=== PATIENT | female | born 1955 | race Caucasian/White ===

== ENCOUNTER 2018-11-11 00:43 | Inpatient (IN) | payer OTHER ==
[~2018-11-11] VITALS: Ht 167.6 cm; Wt 65.0 kg
--- NOTE | 2018-11-11 01:26 | NUR ---
BIBF. C/O "SLIPPED AND FELL ONTO FLOOR. HIT HEAD.R HIP PAIN" -SOB AOX4. VSS.
[2018-11-11] MEDS ORDERED: ONDANSETRON 4 MG TAB.RAPDIS ONE (02:28)
[2018-11-11] MEDS ORDERED: oxyCODONE/APAP (5/325 MG) 1 UDTAB TABLET ONE (02:28)
[2018-11-11] MEDS ORDERED: oxyCODONE/APAP (5/325 MG) 1 UDTAB TABLET PO ONE (02:30)
[2018-11-11] MEDS ORDERED: ONDANSETRON 4 MG TAB.RAPDIS SL ONE (02:30)
[2018-11-11] MEDS ORDERED: SIMV10TA6 PO (04:17)
[2018-11-11] MEDS ORDERED: VENL37.55 PO (04:18)
[2018-11-11 04:24] VITALS: BP 153/73
--- NOTE | 2018-11-11 04:24 | NUR ---
MS RN OPENING NOTES: RECEIVED PT ON ROOM AIR AND IS TOLERATING WELL. NO SOB NOTED. PT COMPLAINING OF MILD R HIP PAIN WHEN SHE MOVES AROUND. PT WAS ALREADY MEDICATED FOR PAIN IN ER. PT HAS IV ON L AC #20G AND IS PATENT AND INTACT. CURRENTLY H/L. BED KEPT IN LOW, LOCKED POSITION, AND SIDE RAILS X 2UP. WILL CONTINUE TO MONITOR PT.
[2018-11-11] MEDS ORDERED: ONDANSETRON HCL/PF 4 MG/2 ML VIAL IVP PRN (04:30)
[2018-11-11] MEDS ORDERED: ACETAMINOPHEN 325 MG TABLET PO PRN (04:30)
[2018-11-11] MEDS ORDERED: Z GUARD REMEDY 2 OZ OINT TP PRN (04:30)
[2018-11-11] MEDS ORDERED: MAG HYDROX/AL HYDROX/SIMETH 30 ML UDC PO PRN (04:30)
[2018-11-11] MEDS ORDERED: ZOLPIDEM TARTRATE 5 MG TABLET PO PRN (04:30)
[2018-11-11] MEDS ORDERED: MAGNESIUM HYDROXIDE 30 ML UDC PO PRN (04:30)
[2018-11-11] MEDS ORDERED: MORPHINE SULFATE INJ 2 MG/ML DISP.SYRIN IV PRN (04:30)
--- NOTE | 2018-11-11 05:00 | NUR ---
MS RN NOTES: MRI CHECKLIST COMPLETED AND PLACED IN CHART.
[2018-11-11] MEDS ORDERED: VENL75TA4 PO (05:35)
[2018-11-11] MEDS ORDERED: SIMV40TA5 PO (05:35)
--- NOTE | 2018-11-11 05:37 | NUR ---
MS RN NOTES: SPOKE WITH PT AND SHE CONFIRMED THAT SHE TAKES SIMVASTATIN 40MG QHS AND EFFEXOR 75MG EVERY OTHER DAY.
--- NOTE | 2018-11-11 06:25 | NUR ---
MS RN CLOSING NOTES: ALL NEEDS WERE ATTENDED AND ANTICIPATED FOR. PT ASLEEP AT THIS TIME AND RESTING COMFORTABLY. NO SOB NOTED. NO S/S OF DISTRESS. PT HAS IV ON L AC #20G AND IS PATENT AND INTACT. CURRENTLY H/L. BED KEPT IN LOW, LOCKED POSITION, AND SIDE RAILS X 2UP. WILL ENDORSE TO AM NURSE FOR ELIESER.
[2018-11-11 08:00] VITALS: BP 152/79
--- NOTE | 2018-11-11 08:05 | NUR ---
MS RN RECEIVED ON BED, AWAKE,ALERT,ORIENTED X4,NOT IN ANY FORM OF DISTRESS, RESPIRATIONS EVEN AND UNLABORED,NO SOB NOTED, S/P GROUND LEVEL FALL, RIGHT HIP PAIN, WILL MONITOR PATIENT.
--- NOTE | 2018-11-11 09:00 | NUR ---
RN BREAKFAST SERVED, ALL NEEDS ATTENDED.
--- NOTE | 2018-11-11 10:00 | NUR ---
MS SANCHEZ WAS SEEN BY RUBENS Browne/ ORDERS MADE AND CARRIED OUT.
[2018-11-11] MEDS: HYDROCODONE/APAP 5/325MG 1 EACH TABLET PO PRN (11:48)
--- NOTE | 2018-11-11 14:00 | NUR ---
MS RN RECEIVED MRI RESULT, PT AWARE, WANT TO TALKED W/ TOREY, TOREY WAS AWARE,WILL TALK TO HER LATER AFTER DOING ADMISSIONS.
[2018-11-11 16:02] LABS: BASOPHILS % (AUTO) 0.7 % (0.0-2.0); HEMATOCRIT 42 % (33-45); HEMOGLOBIN 14.5 g/dL (11.5-14.8); LYMPHOCYTES # (AUTO) 1.5 /CMM (0.8-4.8); LYMPHOCYTES % (AUTO) 20.2 % (20.0-44.0); MEAN CORPUSCULAR HGB CONC 34 g/dl (31.0-36.0); MEAN CORPUSCULAR VOLUME 88 fL (82-100); MONOCYTES # (AUTO) 0.5 /CMM (0.1-1.30); MONOCYTES % (AUTO) 6.5 % (2.0-12.0); NEUTROPHILS # (AUTO) 5.2 /CMM (1.8-8.9); NEUTROPHILS % (AUTO) 71.6 % (43.0-81.0); PLATELET COUNT (AUTO) 242 /CMM (150-450); RED BLOOD CELL COUNT(AUTO) 4.81 MIL/uL (4.0-5.2); WHITE BLOOD COUNT (AUTO) 7.2 K/uL (4.3-11.0)
[2018-11-11 16:20] LABS: CALCIUM, SERUM 8.9 mg/dL (8.5-10.1); CREATININE 0.7 mg/dL (0.6-1.3)
[2018-11-11 16:42] LABS: THYROID STIMULATING HORMONE 3.023 uIU/mL (0.358-3.74)
--- NOTE | 2018-11-11 17:53 | NUR ---
MS RN ON BED, NO DISTRESS NOTED, ROBERTA YOU TEXT BACK, WILL SEE PATIENT IN AM.
[2018-11-11] MEDS ORDERED: SIMVASTATIN 40 MG TABLET PO SCH (18:00)
--- NOTE | 2018-11-11 19:37 | NUR ---
MS RN OPENING NOTES: RECEIVED PT ON ROOM AIR AND IS TOLERATING WELL. PT VERBALIZES THAT SHE IS NOT IN PAIN WHEN SHE DOES NOT MOVE. PT IS A/XO4. PT HAS IV ON L AC #20G AND IS PATENT AND INTACT. CURRENTLY H/L. PT AWAITING TO CHANGE ROOMS SOON. BED KEPT IN LOW, LOCKED POSITION, AND SIDE RAILS X 2UP. WILL CONTINUE TO MONITOR PT.
[2018-11-11 20:00] VITALS: BP 154/94
--- NOTE | 2018-11-11 20:48 | NUR ---
MS RN NOTES: PT MOVED TO 315-1
[2018-11-12] MEDS: HYDROCODONE/APAP 5/325MG 1 EACH TABLET PO PRN ×3 (01:19→21:33)
--- NOTE | 2018-11-12 01:20 | NUR ---
MS RN NOTES: PT COMPLAINING OF 7/10 HEADACHE AND R HIP DISCOMFORT ACHY PAIN. PT WAS ADMINISTERED NORCO 5 PO. ALSO, CHANGED PLASTIC TAPE OF PT'S IV ON L AC TO PAPER TAPE SHE THINKS SHE IS ALLERGIC TO PLASTIC TAPE. HAS BEEN CAUSING HER ITCHINESS.
--- NOTE | 2018-11-12 01:53 | NUR ---
RN NOTES: URINE COLLECTED AND PLACED IN REFRIGERATOR.
[2018-11-12 06:09] LABS: APPEARANCE,URINE CLEAR (CLEAR); BILIRUBIN,URINE NEGATIVE (NEGATIVE); BLOOD, URINE NEGATIVE Ery/uL (NEGATIVE); COLOR,URINE YELLOW (YELLOW); KETONES,URINE TRACE (NEGATIVE); LEUKOCYTE ESTERASE ,URINE TRACE (NEGATIVE); NITRITE, URINE NEGATIVE (NEGATIVE); PROTEIN,URINE NEGATIVE (NEGATIVE); UGLUCOSE NEGATIVE (NEGATIVE); UROBILINOGEN,URINE 0.2 EU/dL (0.2)
--- NOTE | 2018-11-12 06:35 | NUR ---
MS RN CLOSING NOTES: ALL NEEDS WERE ATTENDED AND ANTICIPATED FOR. PT KEPT CLEAN, DRY, AND COMFORTABLE. NO SOB NOTED. NO S/S OF DISTRESS. PT'S IV ON L AC REMAINS INTACT. CURRENTLY H/L. PT ANTICIPATING FOR ORTHO CONSULT. BED KEPT IN LOW, LOCKED POSITION, AND SIDE RAILS X 2UP. WILL ENDORSE TO AM NURSE FOR ELIESER.
[2018-11-12 07:15] LABS: BASOPHILS % (AUTO) 0.3 % (0.0-2.0); EOSINOPHILS % (AUTO) 2.6 % (0.0-6.0); HEMATOCRIT 43 % (33-45); HEMOGLOBIN 14.7 g/dL (11.5-14.8); LYMPHOCYTES % (AUTO) 29.5 % (20.0-44.0); MEAN CORPUSCULAR HGB CONC 34 g/dl (31.0-36.0); MEAN CORPUSCULAR VOLUME 88 fL (82-100); MONOCYTES # (AUTO) 0.5 /CMM (0.1-1.30); MONOCYTES % (AUTO) 7.5 % (2.0-12.0); NEUTROPHILS % (AUTO) 60.1 % (43.0-81.0); PLATELET COUNT (AUTO) 235 /CMM (150-450); RED BLOOD CELL COUNT(AUTO) 4.87 MIL/uL (4.0-5.2); WHITE BLOOD COUNT (AUTO) 6.7 K/uL (4.3-11.0)
[2018-11-12 07:41] LABS: CREATININE 0.7 mg/dL (0.6-1.3); MAGNESIUM 2.3 mg/dL (1.8-2.4); PHOSPHORUS 3.8 mg/dL (2.5-4.9); POTASSIUM 3.8 mmol/L (3.5-5.1)
[2018-11-12 08:00] VITALS: BP 150/76
--- NOTE | 2018-11-12 08:10 | NUR ---
ms rn received on bed, awake,alert,oriented x4,not i any form of distress, respirations even and unlabored,no sob noted, lungs are clear,abdomen soft,positive bowel sounds,denies pain at this time, will monitor patient's condition.all needs attended.
[2018-11-12 08:19] LABS: BACTERIA,URINE Few /HPF (None Seen); RBC,URINE 0-2 /HPF (0-2); SQUAMOUS EPITHELIAL CELL,UR Few /HPF (None Seen)
[2018-11-12] MEDS: VENLAFAXINE 37.5 MG TABLET PO SCH (09:03)
--- NOTE | 2018-11-12 09:50 | NUR ---
ms vences breakfast served,due meds given, tolerated well.
--- NOTE | 2018-11-12 10:30 | NUR ---
ms rn regulatory attorney nurse changed assignment.
--- NOTE | 2018-11-12 11:58 | NUR ---
ms rn report given to vangie Faustin for annemarie.
--- NOTE | 2018-11-12 11:58 | NUR ---
MS RN NOTES RECEIVE REPORT FROM [facility] FOR CONTINUATION OF CARE. PATIENT IN BED ALERT AND AWAKE, ORIENTED X4. DENIES ANY C/O PAIN NOR DISCOMFORT AT THIS TIME. ABLE TO VERBALIZE NEEDS. CALL LIGHT WITHIN REACH.
[2018-11-12 16:00] VITALS: BP 149/99
[2018-11-12] MEDS: SIMVASTATIN 20 MG TABLET PO SCH (18:10)
--- NOTE | 2018-11-12 18:57 | NUR ---
MS RN CLOSING NOTES PATIENT RESTING COMFORTABLY IN BED. NO SOB. ALERT AND ORIENTED X4. DENIES ANY C/O PAIN NOR DISCOMFORT AT THIS TIME. ON WBAT. PATIENT PREFERS TO GO TO THE RESTR[facility]. PATIENT [facility] WELL TODAY. LAC # 20 HL INTACT AND PATENT. IN NO APPARENT DISTRESS. BED IN LOWEST POSITION , LOCKED. BED SIDERAILS UP X2. CALL LIGHT WITHIN REACH.
--- NOTE | 2018-11-12 20:35 | NUR ---
recieved alert and orientated x4 speech clear with one nurse assist ambulated to the bathroom with walker and used an elevated commode seat did well! assisted back to bed. noted bruise on the right hip denies pain at this time
--- NOTE | 2018-11-13 05:14 | NUR ---
ending notes: Ambulated with the walker and one nurse standby she went to the bathroom...did well, shown pt hoe to lift right leg with the left leg and she did well at getting herself into bed. Medicated X1 with [place] and effective for the pain experienced when she moved about. right hip bruise noted. she used an elevated toilet seat and this worked well.
[2018-11-13 06:55] VITALS: BP 149/99
--- NOTE | 2018-11-13 07:08 | NUR ---
MS RN OPENING NOTES RECEIVED PATIENT IN BED ALERT AND AWAKE ORIENTED X4. DENIES ANY C/O PAIN NOR DISCOMFORT. PER PATIENT, SLEPT WELL LAST NIGHT. LAC # 20 INTACT AND PATENT. BED IN LOWEST POSITION, LOCKED. BED SIDERAILS UPX2. CALL LIGHT WITHIN REACH.
[2018-11-13 08:00] VITALS: BP 142/79
[2018-11-13] MEDS: VENLAFAXINE 37.5 MG TABLET PO SCH (08:41)
[2018-11-13] MEDS: HYDROCODONE/APAP 5/325MG 1 EACH TABLET PO PRN ×3 (09:32→21:33)
[2018-11-13 16:06] VITALS: BP 133/79
[2018-11-13] MEDS: SIMVASTATIN 20 MG TABLET PO SCH (17:01)
--- NOTE | 2018-11-13 18:32 | NUR ---
MS RN CLOSING NOTES ALERT AND AWAKE ORIENTED X4. PATIENT UP IN CHAIR. C/O PAIN MEDICATED ORDERED, EFFECTIVENESS NOTED. PATIENT AMBULATED AROUND UNIT WITH WALKER WITH STEADY GAIT. LEFT AC #20 INTACT AND PATENT. CASE MANAGEMENT SPOKE TO PATIENT, PENDING APPROVAL FOR [place] [facility] AT [place]. BED IN LOWEST POSITION, LOCKED. BED SIDERAILS UPX2. IN NO APPARENT DISTRESS. CALL LIGHT WITHIN REACH.
--- NOTE | 2018-11-13 19:41 | NUR ---
MS RN RECEIVE PT IN BED A/O X 3, RESPIRATIONS EVEN AND UNLABORED, STABLE,SAFETY MEASURES IN PLACE. WILL CONTINUE TO MONITOR.
[2018-11-13 20:00] VITALS: BP 138/74
--- NOTE | 2018-11-13 22:00 | NUR ---
PER PT REQUEST WANTS TO REMOVED I.V PERIPHERAL LAC 20 G HEPLOCK DESPITE EXPLAINING RISKS AND BENEFITS OFFERED 3 TIMES PT STILL REFUSED AND WANTS TO REMOVED BECAUSE PER PT "I DONT NEED IT". REMOVED IV HEPLOCK. HOSPITALIST AWARE.
--- NOTE | 2018-11-14 06:16 | NUR ---
MS RN ASLEEP AND EASILY AWAKEN. RESPIRATIONS EVEN AND UNLABORED. NO S/S OF DISTRESS. KEPT CLEAN AND DRY AND COMFORTABLE. NEEDS ATTENDED AND ANTICIPATED. NURSING CARE RENDERED,OFFLOAD HEELS AND ELBOWS AT ALL TIMES. NO C/O OF PAIN AT THIS TIME. SAFETY MEASURES AT ALL TIMES. ENDORSE TO THE NEXT SHIFT.
--- NOTE | 2018-11-14 07:05 | NUR ---
PATIENT AWAKE A/O X4 , NO DISTRESS NOTED, ON ROOM AIR. PATIENT HAS NO IV ASSESS: REMOVED PER PATIENT'S REQUEST BY RING SEWER NURSE.
[2018-11-14 08:00] VITALS: BP_SYST 134; BP_SYST 154; BP_DIAS 71
[2018-11-14] MEDS: VENLAFAXINE 37.5 MG TABLET PO SCH (08:44)
[2018-11-14] MEDS: HYDROCODONE/APAP 5/325MG 1 EACH TABLET PO PRN ×3 (09:52→21:06)
--- NOTE | 2018-11-14 13:11 | NUR ---
PATIENT SEEN BY OT FOR EVALUATION
[2018-11-14 16:00] VITALS: BP 124/76
[2018-11-14] MEDS: SIMVASTATIN 20 MG TABLET PO SCH (17:23)
--- NOTE | 2018-11-14 18:32 | NUR ---
PATIENT RESTING IN BED WITH FAMILY MEMBERS AT BED SIDE. PATIENT REMAINS STABLE, ON ROOM AIR, NO DISTRESS NOTED. PATIENT WALKED X3 IN [address] WITH WALKER. PAIN MEDICATION ADMINISTRATED BEFORE AMBULATION. PATIENT REMAINS WITH NO IV LINE, MD NOTIFIED. TRANSFER TO [facility]END[facility]. ALL NEEDS ATTENDED. SAFETY PRECAUTIONS IMPLEMENTED: BED IN LOW AND LOCKED POSITION, SIDE RAILS UP X2, CALL LIGHT WITHIN REACH. WILL ENDORSE TO NEXT SHIFT FOR ELIESER.
--- NOTE | 2018-11-14 19:30 | NUR ---
MS RN RECEIVE PT IN BED WATCHING TV A/O X 3, RESPIRATIONS EVEN AND UNLABORED, STABLE, SAFETY MEASURES IN PLACE. WILL CONTINUE TO MONITOR.
[2018-11-14 20:00] VITALS: BP 142/70
--- NOTE | 2018-11-15 06:26 | NUR ---
MS RN PT ASLEEP AND EASILY AWAKEN. NOT IN APPARENT DISTRESS. NO C/O OF PAIN AT THIS TIME. KEPT CLEAN AND DRY AND COMFORTABLE. ALL NEEDS ATTENDED AND ANTICIPATED. SAFETY MEASURES AT ALL TIMES. ENDORSE TO THE NEXT SHIFT.
--- NOTE | 2018-11-15 07:30 | NUR ---
MS RN OPENING NOTES RECEIVED PT IN BED, AWAKE, A/O X4. PT TOLERATING RA, WITH NO ACUTE RESPIRATORY DISTRESS NOTED. PT DENIES ANY PAIN OR DISCOMFORT AT THE MOMENT. PT DENIES ANY QUESTIONS OR CONCERNS AT THIS TIME. NO PIV NOTED, PER PT'S REQUEST. PT KEPT COMFORTABLE. CALL LIGHT KEPT WITHIN REACH. BED IN LOWEST, LOCKED POSITION WITH SR X3. WILL CONTINUE PLAN OF CARE.
[2018-11-15 08:01] VITALS: BP 126/77
[2018-11-15] MEDS: VENLAFAXINE 37.5 MG TABLET PO SCH (08:54)
[2018-11-15] MEDS: HYDROCODONE/APAP 5/325MG 1 EACH TABLET PO PRN ×2 (09:56→21:18)
[2018-11-15 16:00] VITALS: BP 123/81
[2018-11-15] MEDS: SIMVASTATIN 20 MG TABLET PO SCH (17:19)
--- NOTE | 2018-11-15 18:30 | NUR ---
MS RN CLOSING NOTES PT IN BED, AWAKE, A/O X4. PT TOLERATING RA, WITH NO ACUTE RESPIRATORY DISTRESS NOTED. PT DENIES ANY PAIN OR DISCOMFORT AT THE MOMENT. NO PIV NOTED, PER PT'S REQUEST. PT KEPT COMFORTABLE. ALL NEEDS AND CARE ATTENDED. CALL LIGHT KEPT WITHIN REACH. BED IN LOWEST, LOCKED POSITION WITH SR X3. WILL ENDORSE TO INCOMING NURSE FOR ELIESER.
--- NOTE | 2018-11-15 19:20 | NUR ---
CHANGE OF SHIFT REPORT Patient in bed, awake, A/O x4. On RA tolerating well. No IV access, MD aware per report. Denies pain, no c/o nausea no vomiting. Instruction to use call light for assistance, verbalized understanding.
[2018-11-15 20:00] VITALS: BP 124/65
--- NOTE | 2018-11-16 06:24 | NUR ---
END OF SHIFT REPORT Patient in bed, stable oxygen saturation on RA. Ambulates with FWW, right hip pain managed with PRN [place]. Denies nausea no vomiting. Slept well more than 6 hours. Hourly rounds, fall precautions maintained. Plan dc to acute rehab. CM following.
--- NOTE | 2018-11-16 07:30 | NUR ---
M/S RN NOTES PATIENT AWAKE, LYING IN BED, NO RESPIRATORY DISTRESS NOTED, NO C/O PAIN AT THIS TIME. SKIN WARM TO TOUCH. PATIENT'S NEEDS ATTENDED. BED ON LOWEST LOCKED POSITION, CALL LIGHT WITHIN REACH. WILL CONTINUE TO MONITOR.
[2018-11-16 08:00] VITALS: BP 118/68
[2018-11-16] MEDS: VENLAFAXINE 37.5 MG TABLET PO SCH (08:28)
--- NOTE | 2018-11-16 11:34 | NUR ---
M/S RN NOTES PATIENT AWAKE, NO RESPIRATORY DISTRESS, NO C/O PAIN AT THIS TIME. PATIENT WALKED WITH WALKER AROUND THE UNIT, TOLERATED WELL. PATIENT'S NEEDS ATTENDED. BED ON LOWEST LOCKED POSITION, CALL LIGHT WITHIN REACH. WILL ENDORSE TO DANIEL GOVEA FOR CONTINUITY OF CARE. Addendum: 11/16/18 at 1141 by KIMMIE CALZADA RN CONTINUITY OF CARE ENDORSED TO DANIEL OSSA.
--- NOTE | 2018-11-16 11:35 | NUR ---
MS RN NOTES Received report from Mireya SANCHEZ. A/O x 4. Patient in stable condition. Breathing even and unlabored on room air with no respiratory distress. Denies pain. All needs rendered at this time. Call light within reach. Will continue to monitor.
[2018-11-16 16:00] VITALS: BP 140/80
[2018-11-16] MEDS: SIMVASTATIN 20 MG TABLET PO SCH (17:14)
--- NOTE | 2018-11-16 18:43 | NUR ---
MS RN CLOSING NOTES Patient awake and resting in bed. A/O x 4. VS stable with no acute distress. Breathing even and unlabored on room air with no respiratory distress. Denies pain. Safety precautions in place. Bed locked and set to lowest position with side rails x 2 up. All needs rendered at this time. Call light within reach. Will endorse plan of care to oncoming shift.
--- NOTE | 2018-11-16 19:00 | NUR ---
RN kevin opening notes Received Pt from morning nurse. Pt is alert and oriented X4. Pt is resting in bed comfortably watching TV. Respiration is normal. No SOB. No nausea or vomiting. Pt denies any pain or discomfort at this time. Pt does not have IV access. Pt stated that Pt was ambulating with Pt's two wheel walker around nursing station. Pt tolerated activity well. Instructed to call. Safety precautions is maintained. Bed at low position, brakes locked, side rails upX2 and call light is within reach. Will continue to monitor.
[2018-11-16 20:00] VITALS: BP 137/75
--- NOTE | 2018-11-16 21:06 | NUR ---
DANIEL brown notes Pt is complaining of right hip pain. Administered [place] 5/325 mg/1 tab/PO as ordered for pain on right hip per Pt request. Instructed to call. Will continue to monitor.
[2018-11-16] MEDS: HYDROCODONE/APAP 5/325MG 1 EACH TABLET PO PRN (21:07)
--- NOTE | 2018-11-17 03:24 | NUR ---
MS RN NOTES RECEIVED REPORT FROM SUK[facility]AR PATIENT SOUND ASLEEP AND SHE DOESNT WANT TO BE DISTURBED WHILE ASLEEP.
--- NOTE | 2018-11-17 03:24 | NUR ---
RN medsurg closing notes Report given to DANIEL Mcghee. Pt is resting in bed comfortably. Pt is alert and oriented X4. Respiration is normal. No SOB. No S/S of distress noted. All needs met and attended. VS is stable. Safety precautions is maintained all the time. Instructed to call. Bed at low position, brakes locked, side rails upX2 and call light is within reach. Will endorse to DANIEL Mcghee for ELIESER.
--- NOTE | 2018-11-17 06:28 | NUR ---
MS RN NOTES FAIRLY RESTED,CALL LIGHT IN REACH,NEEDS ATTENDED.POSSIBLE D/C TO SNF VS [facility].IN NO ACUTE DISTRESS.WILL ENDORSE TO DAY NURSE FOR ELIESER.
--- NOTE | 2018-11-17 07:08 | NUR ---
MS RN NOTES PATIENT IN BED ALERT ORIENTED X 4. NO ACUTE DISTRESS NOTED. BREATHING UNLABORED. NO SOB NOTED. SAFETY MEASURES IN PLACE. CALL LIGHT WITHIN REACH. WILL CONTINUE TO MONITOR ACCORDINGLY.
--- NOTE | 2018-11-17 07:08 | NUR ---
MS RN NOTES PATIENT IN BED ALERT ORIENTED X 4. NO ACUTE DISTRESS NOTED. BREATHING UNLABORED. NO SOB NOTED. IV ACCESS PATENT AND INTACT, NO REDNESS OR SWELLING NOTED. SAFETY MEASURES IN PLACE. CALL LIGHT WITHIN REACH. WILL CONTINUE TO MONITOR ACCORDINGLY. Addendum: 11/17/18 at 1657 by DWAYNE RAHMAN RN DISREGARD ABOVE NOTES, WRONG PATIENT.
[2018-11-17 08:00] VITALS: BP 136/76
[2018-11-17] MEDS: VENLAFAXINE 37.5 MG TABLET PO SCH (09:17)
[2018-11-17 16:00] VITALS: BP 120/78
[2018-11-17] MEDS: SIMVASTATIN 20 MG TABLET PO SCH (17:52)
--- NOTE | 2018-11-17 19:00 | NUR ---
MS RN NOTES PATIENT IN BED ALERT ORIENTED X 4. NO ACUTE DISTRESS NOTED. BREATHING UNLABORED. NO SOB NOTED.NEEDS ATTENDED AND ANTICIPATED. SAFETY MEASURES IN PLACE. CALL LIGHT WITHIN REACH. WILL ENDORSE TO NIGHT NURSE FOR CONTINUITY OF CARE.
--- NOTE | 2018-11-17 19:41 | NUR ---
RN MS OPENING NOTES RECEIVED OT IN BED, AWAKE ALERT ORIENTED X4, BREATHING EVEN AND UNLABORED ON ROOM AIR. NO COMPLAINT OF PAIN OR DISCOMFORT AT THIS TIME. NO IV ACCESS MD NOTIFIED. BED IN LOWEST LOCKED POSITION, CALL LIGHT WITHIN REACH AT ALL TIMES. WILL CONTINUE TO MONITOR FREQUENTLY
[2018-11-17 20:03] VITALS: BP 146/77
[2018-11-17] MEDS: HYDROCODONE/APAP 5/325MG 1 EACH TABLET PO PRN (21:16)
--- NOTE | 2018-11-18 06:06 | NUR ---
RN MS CLOSING NOTES PT REMAINS IN BED SLEEPING, EASILY AROUSED TO NAME CALL, BREATHING EVEN AND UNLABORED ON ROOM AIR. IN NO APPARENT PAIN OR DISCOMFORT AT THIS TIME. NO IV ACCESS. BED IN LOWEST LOCKED POSITION, CALL LIGHT WITHIN REACH AT ALL TIMES. WILL ENDORSE TO DAY NURSE FOR ELIESER
--- NOTE | 2018-11-18 07:08 | NUR ---
MS RN NOTES PATIENT IN BED ALERT ORIENTED X 4. NO ACUTE DISTRESS NOTED. BREATHING UNLABORED. NO SOB NOTED. SAFETY MEASURES IN PLACE. CALL LIGHT WITHIN REACH. WILL CONTINUE TO MONITOR ACCORDINGLY. NO IV ACCESS. MD IS AWARE.
[2018-11-18 08:00] VITALS: BP 128/73
[2018-11-18] MEDS: VENLAFAXINE 37.5 MG TABLET PO SCH (08:34)
[2018-11-18 16:00] VITALS: BP 160/86
[2018-11-18] MEDS: HYDROCODONE/APAP 5/325MG 1 EACH TABLET PO PRN (16:15)
[2018-11-18] MEDS: SIMVASTATIN 20 MG TABLET PO SCH (18:22)
--- NOTE | 2018-11-18 19:00 | NUR ---
MS RN NOTES PATIENT IN BED ALERT ORIENTED X 4. NO ACUTE DISTRESS NOTED. BREATHING UNLABORED. NO SOB NOTED. DUE MEDICATIONS GIVEN, NO ASE NOTED. NEEDS ATTENDED AND ANTICIPATED. KEPT CLEAN DRY AND COMFORTABLE. SAFETY MEASURES IN PLACE. CALL LIGHT WITHIN REACH. PATIENT FOR DISCHARGE, WILL ENDORSE TO NIGHT NURSE FOR CONTINUITY OF CARE.
--- NOTE | 2018-11-18 19:35 | NUR ---
RN NOTES- RECEIVED NEW ORDER FOR HYDRALAZINE 25MG PO ONE TIME FOR HTN FROM DR. 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
--- NOTE | 2018-11-18 19:40 | NUR ---
RN MS OPENING NOTES RECEIVED OT IN BED, AWAKE ALERT ORIENTED X4, BREATHING EVEN AND UNLABORED ON ROOM AIR. NO COMPLAINT OF PAIN OR DISCOMFORT AT THIS TIME. NO IV ACCESS. BED IN LOWEST LOCKED POSITION, CALL LIGHT WITHIN REACH AT ALL TIMES. WILL CONTINUE TO MONITOR FREQUENTLY, AMBULNZ ETA OF 30 MIN, PO HYDRALAZINE 25NG TO BE GIVEN NOW.
[2018-11-18 19:52] VITALS: BP 158/81
[2018-11-18] MEDS ORDERED: hydrALAZINE HCL 25 MG TABLET PO ONE (20:00)
--- NOTE | 2018-11-18 20:00 | NUR ---
RN NOTES- PT PICKED UP BY [facility], STABLE CONDITION, BP OF 150/78. ALL BELONGINGS PACKED, CD OF XRAY GIVEN TO PT
== END 2018-11-18 20:15 | DRG 536 ==
LOC: ER 00:46 → MED 03:57
PROVIDERS: ADMIT Nurse Practitioner Acute Care; ATTEND Family Medicine
DX: S32.491A Other specified fracture of right acetabulum, initial encounter for closed fracture (principal); S32.110A Nondisplaced Zone I fracture of sacrum, initial encounter for closed fracture; S32.591A Other specified fracture of right pubis, initial encounter for closed fracture; W18.30XA Fall on same level, unspecified, initial encounter; E78.5 Hyperlipidemia, unspecified; F32.9 Major depressive disorder, single episode, unspecified; M65.251 Calcific tendinitis, right thigh; R91.8 Other nonspecific abnormal finding of lung field; Y93.9 Activity, unspecified; Y92.009 Unspecified place in unspecified non-institutional (private) residence as the place of occurrence of the external cause
CPT/HCPCS: 36415; 71045-TC; 72170-TC; 73502; 73700-TC; 73721-TC; 80048-TC; 80061-TC; 81000-TC; 83735-TC; 84100-TC; 84443-TC; 85025-TC; 85610-TC; 85730-TC; 87081-TC; 93307-TC; 97110-TC; 97116-TC; 97530-TC; 97535-TC; G0378; Q0162